=== PATIENT | female | born 1980 | race Caucasian/White ===

== ENCOUNTER 2020-12-21 10:53 | Emergency (ER) | payer BC, SELFPAY ==
--- NOTE | ~2020-12-21 | CT_ITS ---
EXAMINATION: CTA chest PE abdomen pel DATE: 12/21/2020 12:09 INDICATION: Chest pain. TECHNIQUE: Computed tomography angiography (CTA) of the chest was performed with 100 mL Omnipaque-350 intravenous contrast timed to evaluate the pulmonary arteries. Coronal maximum intensity projection 3D-reconstructions were created by the technologist. Computed tomography (CT) of the abdomen and pelv is was performed with intravenous contrast. Automated exposure control and iterative reconstruction t echnique were employed. The dose-length product was 1719.37 mGy-cm. COMPARISON: Chest CT 09/13/2007 FINDINGS: CTA chest: The lungs demonstrate mild dependent atelectasis. There are small pleural effusions. There are changes of gastric sleeve procedure. There is a small sliding hiatal hernia. There is fat strand ing around the proximal stomach, consistent with inflammation from recent surgery. The heart size is normal. No pericardial effusion. There is no pulmonary embolus. There is mild thoracic spondylosis. T here is mild chronic anterior wedging of multiple vertebral bodies. CT abdomen and pelvis: There is a 6 mm cyst in the liver. There is diffuse hepatic steatosis. There a re changes of cholecystectomy. The spleen, pancreas, adrenal glands, and right kidney are normal. The re is a 2 mm stone in left kidney. There is a ring-shaped device in the vagina. There is a small left inguinal hernia containing fat. There are no dilated loops of bowel. The appendix is not visualized. There are no pathologically enlarged lymph nodes. There is no free intraperitoneal fluid. There is m ild lumbar spondylosis. IMPRESSION: 1. No pulmonary embolus. 2. Small pleural effusions. 3. Recent gastric sleeve procedure with small sliding hiatal hernia. 4. Diffuse hepatic steatosis. Reviewed, dictated and finalized at location B. TH SAFETY AND ENVIRONMENT MANAGER
--- NOTE | ~2020-12-21 | XR_ITS ---
EXAMINATION: XR chest 2V DATE: 12/21/2020 12:01 INDICATION: Chest pain. TECHNIQUE: Frontal and lateral views of the chest were obtained. COMPARISON: Chest 2 views 07/11/2017 FINDINGS: There is mild atelectasis in the lower lung zones. No pleural effusion or pneumothorax. The heart size is normal. Surgical clips in the right upper quadrant are likely from cholecystectomy. Th ere is mild chronic anterior wedging of multiple vertebral bodies. IMPRESSION: 1. Mild atelectasis in the lower lung zones. Reviewed, dictated and finalized at location B. NT PRODUCTION PLANT OPERATOR
--- NOTE | 2020-12-21 10:56 | ECG_ITS ---
Measurements Intervals [place] Rate: 98 P: 31 WV: 155 QRS: 11 QRSD: 84 T: 5 QT: 350 QTc: 447 Interpretive Statements SINUS RHYTHM BORDERLINE T WAVE ABNORMALITY- INFERIOR LEADS BASELINE ARTIFACT- I, II, III, AVR, AVL,A VF, V1, V4-V6 BORDERLINE ECG Electronically Signed On 12-21-2020 11:21:43 PADDOCK JUDGE by Abilio Castellano D.O.
[2020-12-21 11:01] VITALS: BP 165/101; PULSE 98; RESP 16; TEMP 37.1; O2SAT 98
[2020-12-21 11:13] LABS: Basophils Absolute Auto 0.1 K/mm3 (0.0-0.1); Basophils Percent Auto 0.7 % (0.2-1.2); Eosinophils Absolute Auto 0.4 K/mm3 (0-0.3); Eosinophils Percent Auto 3.7 % (0-4.4); Hematocrit 44.2 % (37.0-47.0); Hemoglobin 14.6 g/dL (12.0-15.0); Immature Granulocyte Absolute 0.05 K/mm3 (0.00-0.031); Immature Granulocyte Percent A 0.4 % (0-0.5); Lymphocytes Absolute Auto 2.99 K/mm3 (0.9-3.2); Lymphocytes Percent Auto 25.6 % (18.3-44.2); Mean Corpuscular Hemoglobin 28.5 pg (26-34); Mean Corpuscular Volume 86.3 fl (80-100); Mean Platelet Volume 9.2 fl (7.4-10.4); Monocytes Absolute Auto 0.6 K/mm3 (0.1-0.6); Monocytes Percent Auto 5.1 % (2.6-8.5); Neutrophils Absolute Auto 7.5 K/mm3 (1.3-6.7); Neutrophils Percent Auto 64.5 % (45.5-73.1); Platelet Count Result 378 k/mm3 (150-375); Red Blood Count 5.12 M/mm3 (4.2-5.4); Red Cell Distribution Width 13.8 % (11.5-14.5); White Blood Count 11.7 K/mm3 (4.5-10.0)
[2020-12-21 11:23] VITALS: BP 147/96; PULSE 74; PULSE 78; RESP 18; O2SAT 98
[2020-12-21 11:25] LABS: Prothrombin Time 13.3 Seconds (11.1-14.7)
[2020-12-21 11:26] LABS: Partial Thromboplastin Time 26.9 SECONDS (22.3-36.8)
[2020-12-21 11:37] LABS: Anion Gap 7 mmol/L (8-16); Blood Urea Nitrogen 6 mg/dL (7-17); Calcium 8.9 mg/dL (8.4-10.2); Carbon Dioxide 25 mmol/L (22-30); Chloride 106 mmol/L (98-107); Estimated CRCL calculation 86 ml/min; Estimated Glomerular Filt Rate > 60; Glucose 91 mg/dL (65-105); Potassium 3.4 mmol/L (3.4-5.0); Sodium 138 mmol/L (137-145); Troponin I < 0.012 ng/mL (0.000-0.034)
[2020-12-21 13:02] VITALS: BP 143/96; PULSE 79; RESP 18; O2SAT 97
[2020-12-21] MEDS: ONDANSETRON INJ 4 MG/2 ML VIAL IV PUSH (13:16)
[2020-12-21] MEDS: MORPHINE SULFATE (*CRX) 4 MG/ML INJ IV PUSH (13:16)
[2020-12-21 14:31] LABS: Troponin I < 0.012 ng/mL (0.000-0.034)
[2020-12-21] MEDS: KETOROLAC 30 MG/ML VIAL (*BKC) IV PUSH (14:31)
--- NOTE | 2020-12-21 14:49 | ED.GENADULT ---
HPI - General Adult General Chief complaint: Chest Pain Stated complaint: chest pain 2 days post-op Time Seen by Provider: 12/21/20 11:46 History of Present Illness HPI narrative: Patient is a 40-year-old female who presents the emergency department chief complaint of chest pain and epigastric pain. Patient reports that she had a gastric bypass approximately 2 days ago at [facility] and specialist. The patient reports that she has had discomfort in the left side of her chest that started today states has been taking hydrocodone but no improvement in symptoms. Patient states that pain is worse with movement and inspiration reports that she is attempted taking hydrocodone but no improvement. Patient states that is not improved by anything. Related Data Allergies Allergy/AdvReac Type Severity Reaction Status Date / Time atomoxetine Allergy Unknown rigid Verified 10/21/19 11:10 muscles, headaches naltrexone Allergy Unknown Vomiting Verified 10/21/19 11:10 promethazine Allergy Unknown itching, Verified 10/21/19 11:10 legs moving uncontrollably sertraline Allergy Unknown headaches, Verified 10/21/19 11:10 rigid muscles PROMETHAZINE HCL AdvReac Unknown PARKISON Uncoded 02/11/14 18:03 TYPE REACTION Review of Systems Review of Systems: Narrative: A 10 system review of systems was completed on the patient and is negative except for what is stated in the HPI. Nursing and ancillary documentation was reviewed. PMFSH Past Medical History Medical History Attention deficit disorder History of gallbladder disease 2007 Surgical History Surgical History H/O: hysterectomy total 2010 History of bilateral tubal ligation 2004 History of cholecystectomy 2007 S/P laparoscopic sleeve gastrectomy Family History Family History Mother Diabetes mellitus Depression Grandparent Hypertension Family history of elevated blood lipids Family history of cardiovascular disease Cerebrovascular accident Carcinoma of colon Family history of malignant neoplasm of breast Social History Social History Smoking status: Never smoker Alcohol intake: current Exam Narrative: Exam Narrative: GENERAL: Well-appearing, well-nourished, and in no acute distress. HEAD: Normocephalic, atraumatic. EYES: PERRLA and EOMI. ENT: Nares clear, no rhinorrhea or epistaxis. Mucous membranes moist. NECK: Supple. CHEST: Clear to auscultation. No respiratory distress. HEART: Regular rate and rhythm. No murmur heard. Normal peripheral pulses. ABDOMEN: Soft, nontender, nondistended, normal active bowel sounds. EXTREMITIES: Normal range of motion. No edema. SKIN: Warm, dry, no rash. NEURO: No focal deficits. Alert and oriented x3. PSYCH: Normal mood and affect. Course Course Emergency Course: EKG shows sinus rhythm with no ST elevation or ST depression Initial troponin was negative A CTA of the chest showed no evidence of pulmonary embolism that also included abdomen pelvis that showed no acute findings from the recent surgery. A repeat troponin was negative on the patient Vital Signs Vital signs: Vital Signs Temperature 37.1 C 12/21/20 11:01 Pulse Rate 98 12/21/20 11:01 Respiratory Rate 16 12/21/20 11:01 Blood Pressure 165/101 H 12/21/20 11:01 Pulse Oximetry 98 12/21/20 11:01 Temperature 37.1 C 12/21/20 11:01 Pulse Rate 79 12/21/20 13:02 Respiratory Rate 18 12/21/20 13:02 Blood Pressure 143/96 H 12/21/20 13:02 Pulse Oximetry 97 12/21/20 13:02 Medical Decision Making Vital Signs Vital Signs: Vital Signs Temperature 37.1 C 12/21/20 11:01 Pulse Rate 98 12/21/20 11:01 Respiratory Rate 16 12/21/20 11:01 Blo
[2020-12-21 15:25] VITALS: BP 119/85; PULSE 73; RESP 20; O2SAT 95
--- NOTE | 2020-12-21 15:33 | PC.NURSE ---
pt. had IV which I discontinued prior to her discharge, site WNL
== END 2020-12-21 15:25 | disposition home or self-care (01) ==
PROVIDERS: Emergency Provider Emergency Medicine; Family Provider Family Medicine; PCP Family Medicine
DX: R07.89 Other chest pain (principal); Z98.84 Bariatric surgery status; R94.31 Abnormal electrocardiogram [ECG] [EKG]
CPT/HCPCS: 36415; 71046; 71275; 74177; 80048; 84484; 85025; 85610; 85730; 93005; 96374; 96375; 99284; J1885; J2270; J2405; Q9967

== ENCOUNTER 2021-01-02 20:48 | Emergency (ER) | payer BC, SELFPAY ==
[2021-01-02] VITALS (17 sets, daily range): BP systolic 113–163; BP diastolic 78–125; PULSE 87–116; RESP 12–27; TEMP 36.4; O2SAT 95–100
--- NOTE | 2021-01-02 21:08 | ED.ALLEREA ---
HPI - Allergic Reaction General Chief complaint: Allergic Reaction Stated complaint: allergic reaction Time Seen by Provider: 01/02/21 20:59 History of Present Illness HPI narrative: Extremely pruritic, mildly painful red rash for the past 40 minutes. Diffuse, worst on the extremities. Associated mild facial swelling. She tried benadryl at home without significant improvement. She has never had this type of rash before. She just started a course of bactrim today for redness around a surgical wound. She has previously taken this without a problem. No lip, tongue, throat swelling. No SOB, fever, light headedness, nausea, vomiting. Related Data Allergies Allergy/AdvReac Type Severity Reaction Status Date / Time atomoxetine Allergy Unknown rigid Verified 10/21/19 11:10 muscles, headaches naltrexone Allergy Unknown Vomiting Verified 10/21/19 11:10 promethazine Allergy Unknown itching, Verified 10/21/19 11:10 legs moving uncontrollably sertraline Allergy Unknown headaches, Verified 10/21/19 11:10 rigid muscles Sulfa (Sulfonamide Allergy Rash Verified 01/03/21 00:14 Antibiotics) PROMETHAZINE HCL AdvReac Unknown PARKISON Uncoded 02/11/14 18:03 TYPE REACTION Review of Systems Review of Systems: All systems reviewed & are unremarkable except as noted in HPI and below Constitutional: Constitutional: Denies fever(s) Eyes: Eyes: Reports no additional eye complaints ENT: Denies dizziness Cardiovascular: Cardiovascular: Denies chest pain Respiratory: Respiratory: Denies dyspnea Gastrointestinal: Gastrointestinal: Denies abdominal pain and Denies nausea Genitourinary: Genitourinary: Reports no additional female genitourinary complaints Musculoskeletal: Musculoskeletal: Denies back pain Integumentary/Breasts: Skin/Breast: Reports pruritus, Reports erythema and Reports rash Neurologic: Denies dizziness and Denies weakness Allergic/Immunologic: Allergic/Immunologic: Denies lip swelling, Denies throat swelling, Denies tongue swelling and Denies wheezing PMFSH Past Medical History Medical History Attention deficit disorder History of gallbladder disease 2006 Surgical History Surgical History H/O: hysterectomy total 2010 History of bilateral tubal ligation 2004 History of cholecystectomy 2007 S/P laparoscopic sleeve gastrectomy Family History Family History Mother Diabetes mellitus Depression Grandparent Hypertension Family history of elevated blood lipids Family history of cardiovascular disease Cerebrovascular accident Carcinoma of colon Family history of malignant neoplasm of breast Social History Social History Smoking status: Never smoker Alcohol intake: current Exam Const: General: healthy appearing, no acute distress and alert Orientation/consciousness: patient oriented x3 HENMT: Head: normal to inspection Face and sinus: normal facial exam Mouth: Yes Normal oral and palatal mucosa present and Yes lip normal Teeth and gingiva: dentition normal Throat: posterior oropharynx normal Eyes: Conjunctivae: conjunctivae normal Pupils: Equal, round and reactive pupils present Neck: Neck: normal visual inspection Resp: Effort & Inspection: normal respiratory effort Auscultation: clear to auscultation bilaterally, no rales, no rhonchi and no wheezes Cardio: Jugular venous distension: no JVD Rate: regular rate Rhythm: regular rhythm Heart sounds: no murmurs Skin: Other: diffuse papular rash on trunk and extremities Neuro: General: patient oriented x3 and moves all extremities Speech: normal speech Extrem: General: no edema Psych: Appearance: well kempt Affect: normal affect Course Vital Signs Vital sig
--- NOTE | 2021-01-02 21:10 | PC.NURSE ---
patient brought back to ED room 2 with c/o allergic reaction after taking first dose of Bactrim around 2019. present. patient c/o itching and redness that started at her feet and now is generalized. c/o facial and eye swelling. denies shortness of breath, tongue swelling or throat tightness. SL inserted by Linden ANTONIO. provider in room. 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
[2021-01-02] MEDS: EPINEPHrine HCL INJ 1 MG/ML AMPUL (21:12)
[2021-01-02] MEDS: diphenhydrAMINE HCl INJ 50 MG/ML VIAL IV PUSH (21:12)
[2021-01-02] MEDS: SODIUM CHLORIDE 0.9% IV 1,000 ML 999 ML IV CONT (21:13)
[2021-01-02] MEDS: FAMOTIDINE 20 MG/2 ML VIAL IV PUSH (21:13)
--- NOTE | 2021-01-02 21:30 | PC.NURSE ---
Epi IM given per provider order. provider at bedside. patient c/o itching continues. 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 additional meds ordered by . on street light repairer helper.
--- NOTE | 2021-01-02 21:30 | PC.NURSE ---
patient medicated per orders. feels 90% better already. present. denies additional needs. call light in reach. on pvc monitor.
--- NOTE | 2021-01-02 23:25 | PC.NURSE ---
IVF completed. SL removed.
== END 2021-01-02 23:15 | disposition home or self-care (01) ==
PROVIDERS: Emergency Provider Emergency Medicine; PCP Family Medicine
DX: L27.0 Generalized skin eruption due to drugs and medicaments taken internally (principal); T36.8X5A Adverse effect of other systemic antibiotics, initial encounter; Z98.84 Bariatric surgery status; F98.8 Other specified behavioral and emotional disorders with onset usually occurring in childhood and adolescence
CPT/HCPCS: 96361; 96372; 96374; 96375; 99284; J0171; J1100; J1200; J7030

== ENCOUNTER 2021-05-22 07:47 | Outpatient (CLI) | payer BC, SELFPAY ==
--- NOTE | ~2021-05-22 | XR_ITS ---
EXAMINATION: XR chest 2V DATE: 05/22/2021 08:03 INDICATION: Generalized enlarged lymph nodes TECHNIQUE: PA and lateral views of the chest are obtained. COMPARISON: 12/21/2020 FINDINGS: The lungs are free of acute opacities. There is no pleural effusion or pneumothorax. The ca rdiomediastinal silhouette is normal. There is mild thoracic spondylosis. Cholecystectomy clips are n oted. IMPRESSION: 1. No acute cardiopulmonary abnormality. Reviewed, dictated and finalized at location A.
== END 2021-05-22 07:48 | disposition home or self-care (01) ==
PROVIDERS: PCP Family Medicine; Visit Provider Family Medicine
DX: R59.1 Generalized enlarged lymph nodes (principal)
CPT/HCPCS: 71046

== ENCOUNTER 2024-02-24 13:51 | Outpatient (CLI) | payer BC, SELFPAY ==
--- NOTE | ~2024-02-24 | XR_ITS ---
EXAMINATION: XR ankle LT min 3V DATE: 02/24/2024 14:06 INDICATION: Left ankle pain and swelling TECHNIQUE: Anteroposterior, lateral, mortise, and additional oblique view of the ankle were obtained. COMPARISON: None. FINDINGS: There is lateral soft tissue swelling of ankle. Bone alignment is normal. There is no fract ure. Posterior and plantar calcaneal enthesophytes are noted. IMPRESSION: 1. Ankle soft tissue swelling without acute osseous abnormality identified. Reviewed, dictated and finalized at location F.
--- NOTE | ~2024-02-24 | XR_ITS ---
EXAMINATION: XR foot LT min 3V DATE: 02/24/2024 14:07 INDICATION: Left foot pain TECHNIQUE: Dorsoplantar, lateral, and 2 oblique views of the left foot were obtained. COMPARISON: None. FINDINGS: Bone alignment is normal. There is no fracture. There is soft tissue swelling of ankle. Pos terior and plantar calcaneal enthesophytes are noted. IMPRESSION: 1. Ankle soft tissue swelling without acute osseous abnormality. Reviewed, dictated and finalized at location F.
== END 2024-02-24 13:52 | disposition home or self-care (01) ==
LOC: ANHIMG 13:53
PROVIDERS: PCP Family Medicine; Visit Provider Family Medicine
DX: M25.572 Pain in left ankle and joints of left foot (principal); M79.89 Other specified soft tissue disorders
CPT/HCPCS: 73610; 73630

== ENCOUNTER 2024-05-10 02:54 | Day surgery (SDC) | payer BC, SELFPAY ==
[2024-05-04 13:51] VITALS: BMI 31.9
[2024-05-10 06:32] VITALS: BP 142/79; PULSE 69; RESP 20; TEMP 36.3; O2SAT 99
[2024-05-10] MEDS: LACTATED RINGERS 1,000 ML 150 ML IV CONT (06:42)
--- NOTE | 2024-05-10 07:17 | WPDANESEPPF ---
Anes - Initial Pre Proc Eval Procedure: Operation Date: 05/10/24 07:30 Proposed Procedures p Screening Colonoscopy - Aram Card DO Date/Time: 05/10/24 07:17 Surgeon: Aram Card DO Pre Op Diagnosis: Screening for malignant neoplasm of colon Patient Data Age: 43 Gender: F Height: 1.6 m Weight: 81 kg Last Vital Signs Temp 97.4 F L 05/10/24 06:32 Pulse 69 05/10/24 06:32 Resp 20 05/10/24 06:32 BP 142/79 H 05/10/24 06:32 Pulse Ox 99 05/10/24 06:32 O2 Del Method Room Air 05/10/24 06:32 Allergies Allergy/AdvReac Type Severity Reaction Status Date / Time Sulfa (Sulfonamide Allergy Severe Swelling Verified 05/10/24 06:31 Antibiotics) of Lip/Tongue/Throat naltrexone AdvReac Unknown Vomiting Verified 05/10/24 06:31 sertraline AdvReac Unknown headaches, Verified 05/10/24 06:31 rigid muscles PROMETHAZINE HCL Allergy Intermediate PARKISON Uncoded 05/10/24 06:31 TYPE REACTION Home Medications Medication Instructions Recorded Confirmed Type zolpidem 10 mg tablet (Ambien) 10 mg PO .qhs PRN insomnia #30 tabs 11/20/21 05/04/24 Rx lorazepam 0.5 mg tablet (Ativan) 0.5 mg PO TID PRN anxiety #30 tabs 10/09/22 05/04/24 Rx etonogestrel 0.12 mg-ethinyl 1 vag ring vaginal ONCE 10/09/23 05/04/24 History estradiol 0.015 mg/24 hr vaginal ring (NuvaRing) dextroamphetamine-amphetamine 10 10 mg PO TID #90 tabs 02/26/24 05/04/24 Rx mg tablet (Adderall) vilazodone 10 mg tablet (Viibryd) 10 mg PO DAILY #90 tabs 04/29/24 05/04/24 Rx cholecalciferol (vitamin D3) 50 50 mcg PO DAILY 05/04/24 05/04/24 History mcg (2,000 unit) tablet (Vitamin D3) mecobalamin (vitamin B12) 1,000 1,000 mcg sublingual DAILY 05/04/24 05/04/24 History mcg disintegrating tablet,sublingual Patient hx anesthesia problems: none Family hx anesthesia problems: none Results Review: All pre-operative results and documents have been reviewed as part of the pre-operative evaluation. [facility] Past Medical History Medical History Attention deficit disorder History of gallbladder disease 2006 Surgical History Surgical History History of bilateral tubal ligation 2004 History of cholecystectomy 2006 History of oophorectomy S/P laparoscopic sleeve gastrectomy Family History Family History Mother Diabetes mellitus Depression Grandparent Hypertension Family history of elevated blood lipids Family history of cardiovascular disease Cerebrovascular accident Carcinoma of colon Family history of malignant neoplasm of breast Social History Social History Smoking status: Never smoker Second hand tobacco smoke exposure: No Alcohol intake: current Substance use: never Substance use type: does not use Lack of Transportation: No Lack of Food: Never True Current Housing: I Have Housing Concerned About Future Housing: No Difficulty Paying Gas/Electric Bills: No Difficulty Paying for Meds: No Currently Unemployed: No Education: Master's Degree or Higher Difficulty w/ Childcare or Family Care: No Living arrangements: with family Occupation/Education: occupation Gender identity (if verbalized by the patient): Female Spiritual care concerns: No Agree to blood products: Yes Anes - Eval Final PreProcedure Day of Procedure 05/10/24 07:17 Patient weight: obese Heart: regular rate and rhythm Lungs: clear to auscultation Airway: Mallampati scale class II Neurological: alert and oriented Last oral intake: >/= 8 hours ASA classification: II Emergent: no Anesthetic plan: proceed Anesthesia type and monitoring: general GIVS and standard monitoring Results Review: All pre-operative results and documents h
--- NOTE | 2024-05-10 07:30 | PM.IMHP ---
H&P: HPI History of Present Illness Date/Time: 05/10/24 07:30 Chief Complaint: Screening for colorectal cancer Narrative: this is a 43-year-old woman who presents for colonoscopy. She has never had a colonoscopy before. She denies any hematochezia or melena. She denies any first-degree relatives with family history of colon cancer. Review of Systems Review of Systems: All systems reviewed & are unremarkable except as noted in HPI and below Constitutional: Constitutional: Denies chills, Denies fever(s), Denies headache(s) and Denies weight loss Eyes: Eyes: Denies change in vision ENT: Denies dizziness, Denies headache(s), Denies neck mass and Denies throat swelling Cardiovascular: Cardiovascular: Denies chest pain, Denies lightheadedness and Denies dyspnea Respiratory: Respiratory: Denies cough, Denies dyspnea and Denies wheezing Gastrointestinal: Gastrointestinal: Denies abdominal pain, Denies change in bowel habits, Denies nausea and Denies vomiting Genitourinary: Genitourinary: Denies hematuria and Denies dysuria Musculoskeletal: Musculoskeletal: Reports as per HPI Integumentary/Breasts: Skin/Breast: Reports as per HPI Neurologic: Denies dizziness and Denies headache(s) Allergic/Immunologic: Allergic/Immunologic: Denies throat swelling and Denies wheezing PMFSH Past Medical History Medical History Attention deficit disorder History of gallbladder disease 2006 Surgical History Surgical History History of bilateral tubal ligation 2005 History of cholecystectomy 2006 History of oophorectomy S/P laparoscopic sleeve gastrectomy Family History Family History Mother Diabetes mellitus Depression Grandparent Hypertension Family history of elevated blood lipids Family history of cardiovascular disease Cerebrovascular accident Carcinoma of colon Family history of malignant neoplasm of breast Social History Social History Smoking status: Never smoker Second hand tobacco smoke exposure: No Alcohol intake: current Substance use: never Substance use type: does not use Lack of Transportation: No Lack of Food: Never True Current Housing: I Have Housing Concerned About Future Housing: No Difficulty Paying Gas/Electric Bills: No Difficulty Paying for Meds: No Currently Unemployed: No Education: Master's Degree or Higher Difficulty w/ Childcare or Family Care: No Living arrangements: with family Occupation/Education: occupation Gender identity (if verbalized by the patient): Female Spiritual care concerns: No Agree to blood products: Yes Meds Home Medications and Allergies Home Medications Medication Instructions Recorded Confirmed Type zolpidem 10 mg tablet (Ambien) 10 mg PO .qhs PRN insomnia #30 tabs 11/20/21 05/04/24 Rx lorazepam 0.5 mg tablet (Ativan) 0.5 mg PO TID PRN anxiety #30 tabs 10/09/22 05/04/24 Rx etonogestrel 0.12 mg-ethinyl 1 vag ring vaginal ONCE 10/09/23 05/04/24 History estradiol 0.015 mg/24 hr vaginal ring (NuvaRing) dextroamphetamine-amphetamine 10 10 mg PO TID #90 tabs 02/26/24 05/04/24 Rx mg tablet (Adderall) vilazodone 10 mg tablet (Viibryd) 10 mg PO DAILY #90 tabs 04/29/24 05/04/24 Rx cholecalciferol (vitamin D3) 50 50 mcg PO DAILY 05/04/24 05/04/24 History mcg (2,000 unit) tablet (Vitamin D3) mecobalamin (vitamin B12) 1,000 1,000 mcg sublingual DAILY 05/04/24 05/04/24 History mcg disintegrating tablet,sublingual Allergies Allergy/AdvReac Type Severity Reaction Status Date / Time Sulfa (Sulfonamide Allergy Severe Swelling Verified 05/10/24 06:31 Antibiotics) of Lip/Tongue/Throat naltrexone AdvReac Unknown Vomiting Verified 05/10/24 06:31 sertraline AdvReac Unkno
[2024-05-10 07:49] VITALS: BP 139/82; PULSE 67; RESP 23; O2SAT 99
[2024-05-10 07:59] VITALS: BP 134/81; PULSE 69; RESP 20; O2SAT 100
[2024-05-10 08:09] VITALS: BP 131/86; PULSE 60; RESP 18; O2SAT 97
--- NOTE | 2024-05-10 13:38 | SUR.PREOP ---
Bedside Urine test was not needed as patient reported having a tubal ligation.
== END 2024-05-10 08:18 | disposition home or self-care (01) ==
PROVIDERS: PCP Family Medicine; Visit Provider Surgery
PROC: 0DJD8ZZ Inspection of Lower Intestinal Tract, Via Natural or Artificial Opening Endoscopic (ICD-10-PCS; CPT 45378; principal; 2024-05-10 07:30)
DX: Z12.11 Encounter for screening for malignant neoplasm of colon (principal); F98.8 Other specified behavioral and emotional disorders with onset usually occurring in childhood and adolescence; Z98.84 Bariatric surgery status; E66.9 Obesity, unspecified; Z68.31 Body mass index [BMI] 31.0-31.9, adult
CPT/HCPCS: 45378; J2704; J7120

== ENCOUNTER 2025-01-04 09:14 | Outpatient (CLI) | payer BC, SELFPAY ==
--- OUTSIDE RECORDS SUMMARY | 2025-01-04 10:08 | XMS_ITS | Encounter Summary ---
Author Organization [facility] Address [address] [place] [address] Care Team Providers Care Welt Rander Name Role Phone Payam Mendez MD Primary Care Provider [phone] Encounter Details Date Type Department Care Team (Late st Contact Info) Description 12/13/2020 Abstract [facility] Operating Room [address] [address] [place] [id number] Delfino Patten MD [address] [place], [place] [id number] Social History Tobacco Use Types Packs/Day Years Used Date Smoking Tobacco: Never Assessed Comments Unknown Sex and Gender Information Value Date Recorded Sex Assigned at Not on file Legal Sex Female 12:57 PM WEBSITE ADMIN Gender Identity Not on file Sexual Orientation Not on file COVID-19 Exposure Response Date Recorded In the last month, have you been in contact with someone who was confirmed or suspected to have Coronavirus / COVID-19? No / Unsure 12/14/2020 8:47 AM WEBSITE ADMIN documented as of this encounter Plan of Treatment Not on file documented as of this encounter Visit Diagnoses Not on filedocumented in this encounter Care Teams Welt Rander Relationship Specialty Start Date End Date Payam Mendez MD PCP - General Family Practice 12/13/20 documented as of this encounter
--- OUTSIDE RECORDS SUMMARY | 2025-01-04 10:08 | XMS_ITS | Clinical Summary ---
Author Organization [facility] Address [address] [place] [address] Phone Care Team Providers Care Cellophane Worker Name Role Phone Payam Mendez MD Primary Care Provider [phone]- [phone] Allergies Active Allergy Reactions Criticality Noted Date Comments Promethazine Other (See Comments) Medium 12/17/2020 Parkinson's type symptoms Medications dextroamphetamin e-amphetamine (ADDERALL) 10 mg tablet Take 10 mg by mouth daily. Active omeprazole (PriLOSEC) 20 mg Capsule, Delayed Release(E.C.) Take 20 mg by mouth 1 time daily as needed. Active HYDROcodone-acet aminophen (HYCET) 7.5-325 mg/15 mL SolutionIndicati ons:Preop testing Take 15 mL by mouth every 6 hours as needed for Pain, Severe. Max Daily Amount: 60 mL 300 mL 12/20/2020 1:13 PM EMOTIONAL SUPPORT TEACHER 12/19/2020 Active buPROPion (WELLBUTRIN) 75 mg tablet Take 1 Tablet (75 mg) by mouth 2 times daily. 75 Tablet 12/20/2020 1:13 PM EMOTIONAL SUPPORT TEACHER 12/20/2020 Active ondansetron (Zofran ODT) 4 mg Tablet, Rapid DissolveIndicati ons:nausea Place 1 Tablet (4 mg) under tongue every 6 hours as needed for Nausea/Vomi ting. 28 Tablet 12/20/2020 1:13 PM EMOTIONAL SUPPORT TEACHER 12/19/2020 Active Active Problems Problem Noted Date Diagnosed Date Post-op pain 12/20/2020 Post-operative nausea and vomiting 12/20/2020 Gastroesophageal reflux disease without esophagi tis 12/19/2020 Benign hypertension 12/19/2020 Anxiety and depression 12/19/2020 Immunizations Immunization Administration Dates Next Due Influenza Seasonal Unspecified Formulation IM Social History Tobacco Use Types Packs/Day Years Used Date Smoking Tobacco: Never Smokeless Tobacco: Never Alcohol Use Standard Drinks/Week Comments Not Currently 0 (1 standard drink = 0.6 oz pur e alcohol) Comments No Sex and Gender Information Value Date Recorded Sex Assigned at Not on file Legal Sex Female 12:57 PM EMOTIONAL SUPPORT TEACHER Gender Identity Not on file Sexual Orientation Not on file Last Filed Vital Signs Vital Sign Reading Time Taken Comments Blood Pressure 140/80 12/20/2020 12:06 PM EMOTIONAL SUPPORT TEACHER Pulse 75 12/20/2020 12:06 PM EMOTIONAL SUPPORT TEACHER Temperature 36.6 ??C (97.9 ??F) 12/20/2020 12:[address] Respiratory Rate 20 12/20/2020 12:06 PM EMOTIONAL SUPPORT TEACHER Oxygen Saturation 98% 12/20/2020 12:06 PM EMOTIONAL SUPPORT TEACHER Inhaled Oxygen Concentration - - Weight 99.4 kg (219 lb 3.2 oz) 12/20/2020 3:00 A M EMOTIONAL SUPPORT TEACHER Height 160 cm (5' 3 ) 12/19/2020 1:40 PM EMOTIONAL SUPPORT TEACHER Body Mass Index 38.83 12/19/2020 1:40 PM EMOTIONAL SUPPORT TEACHER Plan of Treatment Health Maintenance Due Date Last Done Comments DTAP/TDAP/TD VACCINES (1 - Tdap) 1997 HEPATITIS B VACCINES (1 of 3 - 19+ 3-dose series) 1997 CERVICAL CANCER SCREENING 2008 BREAST CANCER SCREENING 2018 COLORECTAL SCREENING 2023 Colorectal Cancer Screening 2023 FIT-DNA Q 3 years 2023 FIT/FOBT Q 1 year 2023 Flex Sig/CT Colonography Q 5 years 2023 INFLUENZA VACCINE (#1) 2024 09/16/2020 HPV VACCINES Aged Out No longer eligi ble based on patient's age to complete this topic Medical Devices Implanted Type Area Supply Chain Systems Manager Device Identifier Shelf Expiration Date Model / Serial / Lot Seamguard Endogia 60 Blk [id number] - [id number] Implanted:Qty : 2 on 12/19/2020 by Delfino Patten MD at [facility] Biological N/A: [employer] 05/31/2023 [id number] / / [id number] Seamguard Endogia 60 Prpl [id number] - [id number] Implanted:Qty : 2 on 12/19/2020 by Delfino Patten MD at [facility] Biological N/A: Stomach [employer] 06/21/2023 [id number] / / [id number] Insurance RX [employer] Commercial Advance Directives For more information, please contact: [phone] * Full Code (Latest Code Status on File) Date Activated Date Inactivated Comments 12/19/2020 8:46 AM 12/20/2020 3:42 PM Care Teams Cellophane Worker Relationship Specialty Start Date End Date Payam Mendez MD PCP - General Family Practice 12/13/20
--- OUTSIDE RECORDS SUMMARY | 2025-01-04 10:08 | XMS_ITS | Clinical Summary ---
Author Organization [facility] Care Team Providers Care Powerhouse Engineer Name Role Phone Unavailable Primary Care Provider Unavailabl e Social History Tobacco Use Types Packs/Day Years Used Date Smoking Tobacco: Never Assessed Comments Unknown Sex and Gender Information Value Date Recorded Sex Assigned at Not on file Legal Sex Female 11:10 PM CDT Gender Identity Not on file Sexual Orientation Not on file Plan of Treatment Not on file
[2025-01-23 13:30] VITALS: BMI 31.8
--- NOTE | 2025-01-23 13:30 | P.SLEEP_ITS ---
Sleep Study - Home Unattended Date of Study: 01/04/25 Ordering Provider: Payam Mendez MD Interpreting Provider: Gail Salazar, DO Home Sleep Study Type: Watch PAT Height: 1.6 m Weight: 81.647 kg Body Mass Index: 31.8 Neck Circumference (inches): 13.5 Moseley: 13 Reason for Sleep Study Daytime hypersomnia Sleep History The patient is a 44-year-old female that had a sleep study ordered by her primary care physician for evaluation of sleep apnea. The patient admits to excessive daytime sleepiness, trouble falling asleep, trouble maintaining sleep and unwanted behaviors during sleep. She denies interruptions in breathing while asleep. She denies choking or gasping at night. She denies having trouble breathing on her back. She does have morning headaches. She does have a dry or sore mouth / throat in the morning. She denies nocturnal heartburn. She urinates twice throughout the night. She does have difficulty returning to sleep if she wakes up throughout the night. She does use a hypnotic or sedative. She denies feeling anxious about sleep. She does feel tired or sleepy during the day. She does feel tired in the morning. She does have the urge to fall asleep during the day. He denies feeling drowsy while driving. She denies sleep paralysis, cataplexy and hypnagogic /hypnopompic hallucinations. She does clench or grind her teeth. She does kick or jerk her legs excessively. She does have a restless feeling in her legs that does cause an urge to move her legs. The restless feeling gets worse with rest but it does get better with activity. The restless feeling is worse in the evening or at night. It does cause a disturbance in her sleep. She goes to bed at 10:00 p.m. every night. It takes her 45 minutes to fall asleep. She gets 7 hours of sleep per night. Her sleep is not restorative on her days off. She denies taking any planned naps. She does act out her dreams. She does sleep walk is an adult. She consumes 1-2 cups of a caffeinated beverage per day. She denies alcohol and tobacco use. She does exercise 1-2 nights per week. [facility] Past Medical History Medical History Attention deficit disorder History of gallbladder disease 2006 Surgical History Surgical History History of oophorectomy S/P laparoscopic sleeve gastrectomy History of bilateral tubal ligation 2005 History of cholecystectomy 2007 Family History Family History Mother Diabetes mellitus Depression Grandparent Hypertension Family history of elevated blood lipids Family history of cardiovascular disease Cerebrovascular accident Carcinoma of colon Family history of malignant neoplasm of breast Social History Social History Smoking status: Never smoker Second hand tobacco smoke exposure: No Alcohol intake: current Substance use: never Substance use type: does not use Lack of Transportation: No Lack of Food: Never True Current Housing: I Have Housing Concerned About Future Housing: No Difficulty Paying Gas/Electric Bills: No Difficulty Paying for Meds: No Currently Unemployed: No Education: Master's Degree or Higher Difficulty w/ Childcare or Family Care: No Living arrangements: with family Occupation/Education: occupation Gender identity (if verbalized by the patient): Female Spiritual care concerns: No Agree to blood products: Yes Medications Home Medications ?Medication ?Instructions ?Recorded ?Confirmed ?Type etonogestrel 0.12 mg-ethinyl 1 vag ring vaginal ONCE 10/09/23 05/04/24 History estradiol 0.015 mg/24 hr vaginal ring (NuvaRing) cholecalciferol (vitamin D3) 50 50 mcg PO DAILY 05/04/24 05/04/24 History mcg (2,000 unit) tablet (Vitamin D3) mecobalamin (vitamin B12) 1,000 1,000 mcg sublingual DAILY 05/04/24 05/04/24 History mcg disintegrating tablet,sublingual vilazodone 10 mg tablet (Viibryd) 10 mg PO DAILY #90 tabs 09/26/24 Rx amoxicillin 500 mg-potassium tablet PO 11/04/24 History clavulanate 125 mg tablet dextroamphetamine-amphetamine 10 10 mg PO TID #90 tabs 01/05/25 Rx mg tablet (Adderall) metoprolol succinate 50 mg See Rx Instructions .Route 01/10/25 Rx tablet,extended release 24 hr .COMPLEX #90 tabs Sleep Procedure The sleep study was completed using [employer] (formerly [employer]) a technically adequate device with seven channels: peripheral arterial tone, actigraphy, body position, snore, respiratory movement, pulse oximetry, sleep staging, and heart rate. Prior to using the device, the patient received verbal and written instructions for its application and was provided with the help desk phone number for additional telephonic instruction with 24-hour availability of qualified personnel to answer questions. The study was scored using CMS guidelines. Sleep Architecture The total recording time is 9 hrs, 11 min. The total sleep time is 8 hrs, 11 min. Sleep latency is 16 minutes. REM latency is 77 minutes. The patient had 7 episodes of waking. Sleep architecture shows 12.6% deep sleep, 64.6% light sleep, and (as % Total Sleep Time) showed NREM (Light 64.6%; Deep 12.6%), and a 22.8% stage REM. The patient spent 74.7% of total sleep time in the supine position. Sleep efficiency was 89.11. Respiratory Analysis The overall AHI (pAHI 3%:) is 18.6. The central AHI is 3.3. The AHI was 15.9 in NREM and 27.6 in REM sleep. The AHI was 21.4 in Supine and 10.2 in Non-supine sleep. Percent of Efrain Cloud respirations is 0.0. Oximetry Data The oxygen desaturation index (SACHA 4%:) is 4.7. The mean saturation is 94%, and the lowest saturation is 87%. Time spent with saturation < 88% is 0.0 minutes. Snoring Profile Snoring average intensity is 40 dB. The patient snored above 45 decibels for 10.6 minutes, 2.2% of sleep time. Cardiac Profile The average pulse rate is 65 beats per minutes. The lowest pulse rate is 50 bpm. The highest pulse rate reported is 96 bpm. Suspected Afib total duration is 0:01:29, (h:m:sec). The longest Afibevent duration is 0:00:47. A suspected arrhythmia flagged in the sleep report does not necessarily imply an arrhythmia condition is present, but rather suggests that further investigation should be considered. A-Fib events < 60 seconds may be artifact.Premature beats occur <0.1 per minute. Assessment and Plan Assessment and Plan (1) FLORINDA (obstructive sleep apnea): Code(s): G47.33 - Obstructive sleep apnea (adult) (pediatric) Status: Acute Assessment and Plan: The patient had an overall AHI of 18.6 with desaturation down to 87%. This is consistent with mild sleep apnea. Due to the patient's ADHD, she qualifies for treatment. The patient had 25 central apneas resulting in a central apnea index of 3.3. Due to the elevated number of central apneas, she is not an ideal candidate for AutoPAP. AutoPAP can increase the frequency and severity of central apneas. The patient also mentioned in her sleep questionnaire that she acts out her dreams as well as sleepwalks. The patient needs to have an in-lab sleep study to rule out REM behavioral disorder. I recommend the patient have a CPAP titration with the use of a hypnotic to ensure we obtain enough sleep data and find an optimal pressure setting. The patient's sleep history is highly suggestive of Restless Leg Syndrome. I recommend that the patient have a serum ferritin drawn for evaluation of iron deficiency anemia. If the patient has a serum ferritin less than 75 ng/mL, I recommend starting a daily iron supplement and a Vitamin C supplement for better absorption. If the serum ferritin is greater than 75 ng/mL, I recommend starting a dopamine agonist and titrating the dose until symptoms resolve. There are nonpharmacological methods to treat limb movements including daily exercise, stretching calf muscles before bed, avoiding excessive amounts of caffeine and alcohol, vitamin B supplementation, magnesium lotion massaged into legs before bed, and use of a weighted blanket. Data The data obtained during this sleep study is adequate for interpretation. Certification This sleep study has been reviewed by a board certified sleep medicine physician.
== END 2025-01-05 11:21 | disposition home or self-care (01) ==
LOC: ANHCSM 09:30
PROVIDERS: PCP Family Medicine; Visit Provider Family Medicine
DX: G47.33 Obstructive sleep apnea (adult) (pediatric) (principal); I10 Essential (primary) hypertension
CPT/HCPCS: 95800

== ENCOUNTER 2025-03-16 13:09 | Outpatient (CLI) | payer BC, SELFPAY ==
--- NOTE | ~2025-03-16 | MM_ITS ---
EXAMINATION: MM diagnostic quin BI w jasper HISTORY: Breast pain TECHNIQUE: Additional 3-D tomosynthesis images of the breasts were performed and synthetic 2-D images were generated. CAD analysis was submitted and interpreted. COMPARISON: 06/13/2019 BREAST PARENCHYMAL COMPOSITION: Not dense: There are scattered areas of fibroglandular density. FINDINGS: There are no suspicious masses, calcifications or architectural distortion in either breast to suggest malignancy. IMPRESSION: 1. No mammographic evidence for malignancy in either breast. 2. Routine yearly screening mammogram and regular clinical breast examination are recommended. BI-RADS Category 1: Negative Reviewed, dictated and finalized at location B. IMPRESSION: 1. No mammographic evidence for malignancy in either breast. 2. Routine yearly screening mammogram and regular clinical breast examination a re recommended. BI-RADS Category 1: Negative
--- OUTSIDE RECORDS SUMMARY | 2025-03-16 13:30 | XMS_ITS | Encounter Summary ---
Author Organization [facility] Address [address] [place] [address] Care Team Providers Care Yolk Spray Drier Name Role Phone Payam Mendez MD Primary Care Provider [phone]- [phone] Encounter Details Date Type Department Care Team (Late st Contact Info) Description 12/13/2020 Abstract [facility] Operating Room [address] [address] [place] [address] Delfino Patten MD [address] [place], [place] [id number] Social History Tobacco Use Types Packs/Day Years Used Date Smoking Tobacco: Never Assessed Comments Unknown Sex and Gender Information Value Date Recorded Sex Assigned at Not on file Legal Sex Female 12:57 PM ENGINEERING LIBRARIAN Gender Identity Not on file Sexual Orientation Not on file COVID-19 Exposure Response Date Recorded In the last month, have you been in contact with someone who was confirmed or suspected to have Coronavirus / COVID-19? No / Unsure 12/14/2020 8:47 AM ENGINEERING LIBRARIAN documented as of this encounter Plan of Treatment Not on file documented as of this encounter Visit Diagnoses Not on filedocumented in this encounter Care Teams Yolk Spray Drier Relationship Specialty Start Date End Date Payam Mendez MD PCP - General Family Practice 12/13/20 documented as of this encounter
--- OUTSIDE RECORDS SUMMARY | 2025-03-16 13:30 | XMS_ITS | Clinical Summary ---
Author Organization [facility] Care Team Providers Care Newspaper Subscription Solicitor Name Role Phone Unavailable Primary Care Provider [...]
--- OUTSIDE RECORDS SUMMARY | 2025-03-16 13:30 | XMS_ITS | Data Portability ---
Author Organization [facility] [employer] Address [address] [place] [address] [place] [address] Care Team Providers Care Magazine Publisher Name Role Phone NYA MALCOLM Primary Care Provider Assessment Encounter Date Assessment Date Assessment LastModified by Organization Details LastModified Time 01/01/2022 01/01/2022 Annual gynecological exam performed. Patient will come back in a year unless there are new symptoms. Suggest Calcium with Vitamin D if not eating in diet. Patient advised to get annual flu shot. Recommend yearly physicals and preform monthly breast exams. Genetic testing is available for patients with family history of cancer. Engage in safe sexual practices, use condoms. Encouraged to have daily exercise. Avoid tobacco and illicit drugs, moderation of alcohol. If BMI greater than 25 dietary consult advised. If you have any questions please call or email. mammogram order Not available 01/01/2022 10:25:17 Plan of Treatment Reminders Order Date Submit Date Provider Last Modified By Organization Details Last Modified Time Details Appointments None recorded. Lab None recorded. Referral None recorded. Procedures None recorded. Surgeries None recorded. Imaging US, transvagina l 2022 023 [email or web address] [facility], [address], [place], [address], 20:57:19 US, pelvis, complete 2022 023 SHANITA [employer], [address], [place], [address], 16:05:16 US, transvagina l 2021 022 SHANITA [employer], [address], [address], [place], [address], 09:36:00 Medication Orders None recorded. Patient TargetsNo targets recorded. Patient InstructionsNo instructions recorded. Reason for Referral None Reported. Results Created Date Observation Date Name Description Value Unit Range Abnormal Flag Note LastModifiedBy Organization Detail LastModifiedTime 01/01/20 22 01/01/2022 IMAGE GUIDE D PAP AND HPV REGAR DLESS image guided Pap, HPV regardless of Pap result SEE RESULT S BELOW CASE REPOR T: Cytol ogy Gynec ologi ana m Repor t Case: [id number] Autho vikki correa Provi canelo: Nery Flores, MARVA Colle cted: 01/01 1040 Order ing Locat ion: [place] [facility] Recei sander: 01/02 0413 First Scree n: Law banerjee, Christina lee, CT Speci men: Scree katelynn Pap - Image d, Cervi x STATE MENT OF ADEQU ACY: Satis facto ry for evalu ation Trans forma tion zone compo nent prese nt FINAL DIAGN OSIS: Negat marquise for Intra epith elial Rogers galvan or Jose hernandez (NIL) . Elect orly schuler gifty d by Christina Samano, CT on 022 at 7:08 PM ----- ----- ----- ----- ----- ----- ----- ----- ----- ----- ----- ----- ----- ----- ----- ----- ----- ---- HPV RESUL TS: HPV mRNA E6/E7 : No HPV mRNA Detec ja NOTE: This high risk HPV mRNA assay detec ts fourt een high- risk HPV types (16, 18, 31, 33, 35, 39, 45, 51, 52, 56, 58, 59, 66, 68) witho ut diffe renti ation . COMME NT: Note: This speci men was revie wed by a Cytot echno logis t and/o r Patho logis t (as indic ated in this repor t) after evalu ation using the Thinp rep Imagi ng Syste m. CLINI ANA M INFOR MATIO N: Menst rual Statu s: LMP (if appli cable ): Clini ana m Histo ry/Pr eviou s Pap: Type of Neopl leanne (if appli cable ): Signi fican t Clini ana m Findi ngs: Other Histo ry: Hormo carmen (if appli cable ): PAP EDUCA JCAOB L NOTE: The Pap Test is a scree katelynn test with an inher ent false negat marquise rate. Liqui d-bas ed sampl ing may decre ase, but will not elimi lucy, false negat marquise resul ts. A negat marquise resul t does not precl ude the prese nce and/o r devel opmen t of disea se, since the prese nce of abnor mal cells in the sampl e depen ds on the locat ion of the lesio n and sampl ing techn ique. Emily nued regul ar scree katelynn is the best metho d of cance r preve ntion . If repor ja cytol ogic findi ng do not corre late with physi ana m and/o r histo rical findi ngs, furth er inves tigat ion is recom brinda d, as clini nayely garner nted. Not Available [facility] (Lab) [address], [place], [address], 01/07/2022 20:10:41 01/21/20 22 01/21/2022 HEPAT ITIS B SURFA CE ANTIG EN hepatitis B surface antigen Non-re active non-re active This assay was perfo rmed using [employer] ratio n reage nts and test kits. Value s obtai jennifer with other assay metho ds or kits canno t be used inter bar eably . Not Available [facility] (Lab) [address] [facility] [facility], [place], [address], 01/22/2022 08:25:56 01/21/20 22 01/21/2022 MMR PANEL rubella antibodies, IgG Reacti ve reacti ve Not Available [facility] (Lab) [address], [place], [address], 01/22/2022 08:25:57 01/21/20 22 01/21/2022 MMR PANEL rubella antibodies, IgG quant 22.0 IU/mL >=10 Non-r eacti ve (Non- Immun e) <10 IU/mL React marquise (Immu ne) > or = 10 IU/mL Not Available [facility] (Lab) [address], [place], [address], 01/22/2022 08:25:57 01/21/20 22 01/21/2022 MMR PANEL rubeola antibody, IgG Negati ve positi ve abnormal Not Available [facility] (Lab) [address] [facility] [facility], [place], [address], 01/22/2022 08:25:57 01/21/20 22 01/21/2022 MMR PANEL rubeola Ab, quant 0.6 ai >=1.1 low Not Available [facility] (Lab) [address], [place], [address], 01/22/2022 08:25:57 01/21/20 22 01/21/2022 MMR PANEL mumps antibody, IgG quant 0.7 ai >=1.1 low Mumps Immun ity was not detec ja/i nterm inate due to no prior infec tions or decre ased effic acy of vacci natio n. Follo w-up immun izati on is recom brinda d. Not Available [facility] (Lab) [address] , [place], [address], 01/22/2022 08:25:57 01/21/20 22 01/21/2022 MMR PANEL mumps antibody, IgG Negati ve positi ve abnormal Not Available [facility] (Lab) [address], [place], [address], 01/22/2022 08:25:57 01/21/20 22 01/21/2022 VARIC TITO IMMUN ITY (IGG) varicella Ab, quant 1.9 ai >=1.1 Not Available [facility] (Lab) [address] [facility] [address] [facility], [place], [address], 01/22/2022 08:25:57 01/21/20 22 01/21/2022 VARIC TITO IMMUN ITY (IGG) varicella IgG Positi ve positi ve Not Available [facility] (Lab) [address] [facility] [facility], [place], [address], 01/22/2022 08:25:57 12/17/19 22 12/18/2021 US, trans vagin al No observ ation record ed. [email or web address] [employer] [address], [place], [address], 12/18/2021 12:06:54 12/18/19 22 12/17/2021 US, trans vagin al No observ ation record ed. [email or web address] [address], [place], [address], 12/18/2021 21:28:49 12/18/19 22 12/17/2021 US, trans vagin al No observ ation record ed. [email or web address] [address], [place], [address], 12/18/2021 21:28:49 01/06/20 23 01/06/2023 US, pelvi s, compl ete No observ ation record ed. [email or web address] [address], [place], [address], 02/12/2023 11:15:25 01/06/20 23 01/06/2023 US, trans vagin al No observ ation record ed. [email or web address] [employer] [address], [place], [address], 01/06/2023 17:12:09 Result Notes None recorded. Problems Name Problem SNOMED Code Status Onset Date Resolution Date Notes Provider Name and Address Organization Details Recorded Time Pelvic and perineal pain 432338527 Completed 201702/11/2021 Pelvic and perineal pain;Carlos rded Elsewhere : No Locati on: [facility] So urce: EHR Chron ic: N Practic e ID: 0001 Bill able Time: 04:08:00 PM Nery Garciak shady, [facility] 14:28:28 Urinary tract infectio us disease [id number] Completed 201602/11/2021 UTI;Recor ded Elsewhere : No Locati on: [facility] So urce: EHR Chron ic: N Practic e ID: 0001 Bill able Time: 01:16:39 PM Nery Rojas [facility], [facility] 14:28:48 Cyst of ovary Completed 201702/11/2021 Unspecifi ed ovarian cyst, unspecifi ed side;Carlos rded Elsewhere : No Locati on: [facility] So urce: EHR Chron ic: N Practic e ID: 0001 Bill able Time: 04:08:00 PM Nery Rojas [facility], [facility] 1 14:28:00 Clinical finding Completed 201602/11/2021 Presence of (intraute rine) contracep tive device;Re corded Elsewhere : No Locati on: [facility] So urce: EHR Chron ic: N Practic e ID: 0001 Bill able Time: 03:15:00 PM Nery Garciak [facility], [facility] 14:27:[address] Concept Completed 201902/11/2021 Encntr for doctor of chiropractic exam (general) (routine) w/o abn findings; Recorded Elsewhere : No Locati on: [facility] So urce: EHR Chron ic: N Practic e ID: 0001 Bill able Time: 08:30:00 AM Nery Garciak [facility], [facility] 14:28:46 Removal of intraute rine device Completed 201702/11/2021 Encounter for removal of intrauter ine contracep tive device;Re corded Elsewhere : No Locati on: [facility] So urce: EHR Chron ic: N Practic e ID: 0001 Bill able Time: 08:21:00 AM Nery Rojas [facility], [facility] 14:28:53 Muscle pain [id number] Completed 201702/11/2021 Myalgia;R ecorded Elsewhere : No Locati on: [facility] So urce: EHR Chron ic: N Practic e ID: 0001 Bill able Time: 12:45:00 PM Nery Rojas [facility], [facility] 14:28:35 Atypical squamous cells of undeterm ined signific ance on cervical Papanico laou smear [id number] Completed 201602/11/2021 Atyp squam cell of undet signfc cyto smr crvx (ASC-US); Recorded Elsewhere : No Locati on: [facility] So urce: EHR Chron ic: N Practic e ID: 0001 Bill able Time: 03:15:00 PM Nery Rojas [facility], [facility] 14:27:53 Insertio n of intraute rine contrace ptive device Completed 201602/11/2021 Encounter for insertion of intrauter ine contracep tive device;Re corded Elsewhere : No Locati on: [facility] So urce: EHR Chron ic: N Practic e ID: 0001 Bill able Time: 03:15:00 PM Nery Rojas [facility] 14:28:06 Acute vaginiti s [id number] Completed 201802/11/2021 Acute vulvovagi nitis;Rec orded Elsewhere : No Locati on: [facility] So urce: EHR Chron ic: N Practic e ID: 0001 Bill able Time: 04:00:00 PM Nery caruso, [facility] 14:28:32 Clinical finding Completed 201902/11/2021 Obesity;R ecorded Elsewhere : No Locati on: [facility] So urce: EHR Chron ic: N Practic e ID: 0001 Bill able Time: 08:30:00 AM Nery caruso, [facility] 14:28:03 Pregnanc y test negative [id number] Completed 201602/11/2021 Encounter for test, result negative; Recorded Elsewhere : No Locati on: [facility] So urce: EHR Chron ic: N Practic e ID: 0001 Bill able Time: 03:15:00 PM Nery caruso, [facility] 14:28:[address] Concept Completed 201602/11/2021 Encntr for general adult medical exam w/o abnormal findings; Recorded Elsewhere : No Locati on: [facility] So urce: EHR Chron ic: N Practic e ID: 0001 Bill able Time: 09:30:00 AM Nery caruso, [facility] 14:28:43 Problem Notes None recorded. Procedures Surgical History None recorded. Imaging Results Imaging Date Name Status LastModified by Organization Details LastModified Time 12/18/2021 US, transvaginal completed [email or web address] Yvonne benedict [address], [place], [address], 12/18/2021 12:06:54 12/17/2021 US, transvaginal completed [email or web address] [address], [place], [address], 12/18/2021 21:28:49 12/17/2021 US, transvaginal completed [email or web address] [address], [place], [address], 12/18/2021 21:28:49 01/06/2023 US, pelvis, complete completed lily Morris [address], [place], [address], 02/12/2023 11:15:25 01/06/2023 US[facility]vaginal [email or web address] [address], [place], [address], 01/06/2023 17:12:09 Procedure Notes None recorded. Medical Equipment None Reported. Allergies Allergen ID Allergen Name Allergen Category Reaction Reaction Severity Criticality Documentation Date Start Date Code Code System Note Provider Name and Address Organization Details Recorded Time 73948 Substance with sulfonami de structure and antibacte rial mechanism of action (substanc e) medicatio n anaphylax is severe Not available 01/07/2021 79401 8003 SNOMED Nery Rojas [facility] 10:23:32 Medications Name Sig Start Date Stop Date Status Note LastModified by Organization Details LastModified Time cyclobenz aprine 10 mg tablet TAKE 1 TABLET BY MOUTH EVERY 12 HOURS 2023 active Not Available Not Available Not Avai lable amoxicill in 500 mg capsule TAKE 1 CAPSULE BY MOUTH TWICE DAILY FOR 10 DAYS active Not Available Not Available No t Available buspirone 5 mg tablet TAKE 1 TABLET BY MOUTH TWICE DAILY active Not Available Not Available No t Available Augmentin 875 mg-125 mg tablet take 1 tablet by oral route every 12 hours 09/07 completed Prescrib ed Elsewher e: No Locat ion: [facility] M odify By: desiree lópez DateTime : 05/11/20 17 12:07:27 PM Not Available Not Available Not Available azithromy chris 250 mg tablet take 2 tablet by oral route every day for 1 day then 1 tablet (250 mg) by oral route once daily for 4 days active Not Available Not Available No t Available fluconazo le 150 mg tablet TAKE 1 TABLET BY MOUTH TODAY. REPEAT IN 3 DAYS active Not Available Not Available No t Available Claritin 10 mg tablet Take 1 tablet every day by oral route. 2021 active Not Available Not Available Not Avai lable dextroamp hetamine- amphetami ne 10 mg tablet TAKE 1 TABLET BY MOUTH THREE TIMES DAILY active Not Available Not Available No t Available penicilli n V potassium 500 mg tablet take 1 tablet by oral route every 6 hours 09/07 completed Prescrib ed Elsewher e: No Locat ion: [facility] odify By: viviana lópez DateTime : 01/01/20 07:15:50 PM Not Available Not Available Not Available Tamiflu 75 mg capsule take 1 capsule by oral route every day 09/07 completed Prescrib ed Elsewher e: No Locat ion: [facility] odify By: nixon knight DateTime : 02/10/20 08:45:24 AM Not Available Not Available Not Available Macrobid 100 mg capsule take 1 capsule by oral route every 12 hours for 10 days with food 06/25 completed Prescrib ed Elsewher e: No Locat ion: [facility] odify By: viviana lópez DateTime : 06/16/20 09:44:51 PM Not Available Not Available Not Available lorazepam 0.5 mg tablet TAKE 1 TABLET BY MOUTH THREE TIMES DAILY NEEDED FOR ANXIETY active Not Available Not Available No t Available Flagyl 500 mg tablet take 1 tablet by oral route every 12 hours 09/07 completed Prescrib ed Elsewher e: No Locat ion: [facility] odify By: tania lópez DateTime : 09/01/20 02:46:01 PM Not Available Not Available Not Available Proctofoa m HC 1 %-1 % Insert 1 applicat ion 3 times a day by rectal route as needed for 30 days. 2020 active Not Available Not Available Not Avai lable nystatin- triamcino lone 100,000 unit/g-0. 1 % topical cream APPLY ONTO THE AFFECTED AREA(S) TWICE DAILY 2021 active Not Available Not Available Not Avai lable monteluka st 10 mg tablet Take 1 tablet every day by oral route. 09/07 completed Not Available Not Available Not Available codeine 10 mg-guaife nesin 100 mg/5 mL oral liquid take 10 millilit er by oral route every 4 hours as needed 02/19 completed Prescrib ed Elsewher e: No Locat ion: [facility] odify By: lyn ruby DateTime : 12/29/19 04:01:41 PM Not Available Not Available Not Available levofloxa chris 500 mg tablet Take 1 tablet every 24 hours by oral route for 7 days. 09/07 completed Not Available Not Available Not Available Anusol-HC 25 mg rectal supposito ry insert 1 supposit ory by rectal route 2 times every day for 2 weeks 09/07 completed Not Available Not Available Not Available zolpidem 10 mg tablet TAKE 1 TABLET BY MOUTH EVERY NIGHT AT BEDTIME NEEDED FOR INSOMNIA active Not Available Not Available No t Available methylpre dnisolone 4 mg tablets in a dose pack FOLLOW PACKAGE DIRECTIO NS active Not Available Not Available No t Available ondansetr on 4 mg disintegr ating tablet DISSOLVE AND SWALLOW 1 TABLET BY MOUTH EVERY 4 HOURS NEEDED active Not Available Not Available No t Available Ambien 5 mg tablet take 2 tablet by oral route every day at bedtime 02/28 completed Prescrib ed Elsewher e: No Locat ion: [facility] odify By: brandt knight DateTime : 02/29/20 08:50:53 AM Not Available Not Available Not Available Bactrim DS 800 mg-160 mg tablet Take 1 tablet every 12 hours by oral route. 09/07 completed Not Available Not Available Not Available NuvaRing 0.12 mg-0.015 mg/24 hr vaginal INSERT 1 RING VAGINALL Y EVERY MONTH 2024 active Not Available Not Available Not Avai lable bupropion HCl XL 150 mg 24 hr tablet, extended release TAKE 1 TABLET BY MOUTH EVERY MORNING active Not Available Not Available No t Available Wal-itin D 10 mg-240 mg tablet,ex tended release TAKE 1 TABLET BY MOUTH EVERY DAY active Not Available Not Available No t Available ProAir HFA 90 mcg/actua tion aerosol inhaler inhale 2 puff by inhalati on route every 4 - 6 hours as needed 09/07 completed Prescrib ed Elsewher e: No Locat ion: Yvonne benedict [facility] M odify By: yoanieder gurinder Enco unter DateTime : 02/15/20 04:45:56 PM Not Available Not Available Not Available vilazodon e 10 mg tablet TAKE 1 TABLET BY MOUTH DAILY WITH FOOD active Not Available Not Available No t Available Contrave 8 mg-90 mg tablet,ex tended release Take 2 tablets twice a day by oral route. 2020 active Not Available Not Available Not Avai lable Annovera 0.15 mg-0.013 mg/24 hr vaginal ring active Not Available Not Available Not Available Wegovy 0.25 mg/0.5 mL subcutane ous pen injector INJECT 0.25MG UNDER THE SKIN ONCE A WEEK active Not Available Not Available No t Available Vitals Date Recorded Systolic blood pressure Diastolic blood pressure Provider Name and Address Organization Details Last Updated DateTime 01/01/2022 127 mm[Hg] 82 mm[Hg] Prabha Geiger [facility] 01/01/2022 10:26:37 Social History None recorded. Functional Status None recorded. Mental Status None recorded. Family History Nothing Reported. Medical History No medical history recorded. Gynecological HistoryNo gynecological history recorded. Obstetrics History GPAL:G 0 P 0 0 0 0 Past Encounters Encounter ID Performer Location Encounter Start Date Encounter Closed Date Diagnosis/Indication Diagnosis SNOMED-CT Code Diagnosis ICD10 Code Diagnosis Note [id number] [facility] [address] [address] 12/17/2021 17:57:05 12/18/2021 08:58:51 Pain in pelvis 32270972 R10.2 [id number] [facility] [address],[place] [address] 01/01/2022 09:51:53 01/01/2022 11:37:00 Gynecologic examination [id number] Z01.419 [id number] INEZ Hummel [facility] [address] [address] 01/06/2023 14:45:47 01/06/2023 15:19:33 Pain in pelvis 35079735 R10.2 This patient is a 42-year-ol d female with pelvic pain. We have agreed to complete the evaluation with pelvic ultrasound . The patient will return after the pelvic ultrasound to discuss those findings and to develop a treatment plan. A comprehens marquise history and physical exam was performed today. We spent over 25 minutes face-to-fa ce. The patient was given precaution s. She will contact clinic if pelvic pain increases in frequency or intensity. Also notify clinic of any new symptoms associated with pelvic pain. She does not appear to have an acute pelvic infection today, but was asked to contact us Immediatel y with nausea, vomiting, fever, chills.Pel monserrat u/s scheduled [id number] Steph Handley [facility] [address] [address] 01/06/2023 17:08:12 01/06/2023 17:30:06 Pain in pelvis 54000532 R10.2 Health Concerns Section Related Observation LastModified by Organization Detai ls LastModified Time None Recorded Concern Status LastModified by Organization Details LastModified Time None Recorded Advance Directives Directive None Recorded Payers Encounter Date Sequence Insurance Name Policy Number Policy Graham Covered Member ID Graham Member ID Guarantor Name 12/17/2021 1 [place] [id number] Sam A Panyik [id number] Nery Panyik 01/01/2022 1 [place] [id number] Sam A Panyik [id number] Nery Panyik 01/06/2023 1 [place] [id number] Sam A Panyik [id number] Nery Panyik 01/06/2023 1 [place] [id number] Sam A Panyik [id number] 05 Nery Panyik Notes Date Note Type Note Provider Name and Address Organization Details Recorded Time 01/01/2022 text/html Annual GYNReport ed bypatient.Menstrual cycle:Normal menses Urinary symptoms:No hematuria; No incontinence Vulva:No genital lesion Vagina:Normal vaginal discharge Breast:No breast pain; No breast lump; No nipple discharge Psychological symptoms:No depression; No anxiety; No PMDD Preventive measures:Encourage self breast examination; Encourage regular exercise; Encourage no tobacco use; Encourage regular mammograms starting age 38Notes:doing well, on nuva ring happy with method Keiry Gonzalez CNM [address], [place], [address], [facility] 01/01/2022 10:27:00 01/06/2023 text/html Patient presents for left sided pelvic pain x 1 weekLower, dull, ache sensation. Comes and goesNuvaRing for BCNo urinary symptomsNormal bowel movements INEZ Hummel [address], [place], [address], [facility] 01/06/2023 17:39:13 OBGyn Episode No OBEpisode recorded.
--- OUTSIDE RECORDS SUMMARY | 2025-03-16 13:30 | XMS_ITS | Clinical Summary ---
Author Organization [facility] Address [address] [place] [address] Phone Care Team Providers Care Blending Technician Name Role Phone Payam Mendez MD Primary Care Provider [phone] Allergies Active Allergy Reactions Criticality Noted Date [...] 60 mL 300 mL 12/20/2020 1:13 PM MANUFACTURING TEACHER 12/19/2020 Active buPROPion (WELLBUTRIN) 75 mg tablet Take 1 Tablet (75 mg) by mouth 2 times daily. 75 Tablet 12/20/2020 1:13 PM MANUFACTURING TEACHER 12/20/2020 Active ondansetron (Zofran ODT) 4 mg Tablet, Rapid DissolveIndicati ons:nausea Place 1 Tablet (4 mg) under tongue every 6 hours as needed for Nausea/Vomi ting. 28 Tablet 12/20/2020 1:13 PM MANUFACTURING TEACHER 12/19/2020 Active Active Problems Problem Noted [...] on file Legal Sex Female 12:57 PM MANUFACTURING TEACHER Gender Identity Not on file Sexual Orientation Not on file Last Filed Vital Signs Vital Sign Reading Time Taken Comments Blood Pressure 140/80 12/20/2020 12:06 PM MANUFACTURING TEACHER Pulse 75 12/20/2020 12:06 PM MANUFACTURING TEACHER Temperature 36.6 C (97.9 F) 12/20/2020 12:06 PM MANUFACTURING TEACHER Respiratory Rate 20 12/20/2020 12:06 PM MANUFACTURING TEACHER Oxygen Saturation 98% 12/20/2020 12:06 PM MANUFACTURING TEACHER Inhaled Oxygen Concentration - - Weight 99.4 kg (219 lb 3.2 oz) 12/20/2020 3:00 A M MANUFACTURING TEACHER Height 160 cm (5' 3 ) 12/19/2020 1:40 PM MANUFACTURING TEACHER Body Mass Index 38.83 12/19/2020 1:40 PM MANUFACTURING TEACHER Plan of Treatment Health Maintenance Due Date Last Done Comments DTAP/TDAP/TD VACCINES (1 - Tdap) 1997 HEPATITIS B VACCINES (1 of 3 - 19+ 3-dose series) 1997 HPV/Cotest (21-29) 1999 PAP SMEAR 1999 CERVICAL CANCER SCREENING 2008 HPV/Cotest (30-65) 2008 PAP SMEAR 2008 BREAST CANCER SCREENING 2018 COLORECTAL SCREENING 2023 Colorectal Cancer Screening 2023 FIT-DNA Q 3 years 2023 FIT/FOBT Q 1 year 2023 Flex Sig/CT Colonography Q 5 years 2023 INFLUENZA VACCINE (#1) 2024 09/16/2020 HPV VACCINES Aged Out No longer eligi ble based on patient's age to complete this topic Medical Devices Implanted Type Area Operator Control Room Device Identifier Shelf Expiration Date Model / Serial / Lot Seamguard Endogia 60 [id number] [id number] - [id number] Implanted:Qty : 2 on 12/19/2020 by Delfino Patten MD at [facility] Biological N/A: Stomach [employer] 05/31/2023 [id number] / / [id number] Seamguard Endogia 60 [id number] [id number] - [id number] Implanted:Qty : 2 on 12/19/2020 by Delfino Patten MD at [facility] Biological N/A: Stomach [employer] 06/21/2023 [id number] / / [id number] Insurance [employer] Commercial Advance Directives For more information, please contact: [phone] * Full Code (Latest Code Status on File) Date Activated Date Inactivated Comments 12/19/2020 8:46 AM 12/20/2020 3:42 PM Care Teams Blending Technician Relationship Specialty Start Date End Date Payam Mendez MD PCP - General Family Practice 12/13/20
== END 2025-03-16 13:10 | disposition home or self-care (01) ==
LOC: ANHIMG 13:10
PROVIDERS: PCP Family Medicine; Visit Provider Advanced Practice Midwife
DX: N64.4 Mastodynia (principal)
CPT/HCPCS: 77062; 77066; G0279